=== PATIENT | male | born 1990 | race Two or more races ===

== ENCOUNTER 2020-12-02 09:06 | Emergency (ER) | payer OTHER ==
[~2020-12-02] VITALS: Ht 180.3 cm; Wt 80.7 kg
== END 2020-12-02 12:53 | disposition home or self-care (01) ==
LOC: ER 09:06
DX: S61.422A Laceration with foreign body of left hand, initial encounter (principal); W26.0XXA Contact with knife, initial encounter; Y93.89 Activity, other specified; Y92.090 Kitchen in other non-institutional residence as the place of occurrence of the external cause; Y99.8 Other external cause status

== ENCOUNTER 2023-08-26 06:40 | Emergency (ER) | payer OTHER ==
[~2023-08-26] VITALS: Ht 175.3 cm; Wt 90.7 kg
[2023-08-26 09:35] LABS: HEMATOCRIT 42.3 % (39.0-48.0); HEMOGLOBIN 14.4 g/dL (13-16.00); MEAN CORPUSCULAR HEMOGLOBIN 29.6 pg (27.00-32.0); MEAN CORPUSCULAR HGB CONC 34.1 g/dl (32.0-36.0); PLATELET COUNT 214 K/uL (150-450); RED BLOOD COUNT 4.86 M/uL (4.00-6.00); RED CELL DISTRIBUTION WIDTH 13.7 % (11.5-14.5)
[2023-08-26 09:47] LABS: PH,URINE 8.5 (5.0-8.0); URINE APPEARANCE Clear; URINE BILIRRUBIN Negative (NEGATIVE); URINE BLOOD Negative; URINE COLOR Yellow; URINE GLUCOSE Negative (NEGATIVE); URINE LEUKOCYTE Negative; URINE NITRATE Negative; URINE PROTEIN Trace (NEGATIVE); URINE UROBILINOGEN 0.2 E.U./dl
[2023-08-26 09:51] LABS: URINE WBC 4.9 uL (0.0-23.2)
[2023-08-26 09:57] LABS: URINE EPITHELIAL CELLS 1.2 uL (0.0-38.8)
[2023-08-26 10:12] LABS: CREATININE SERUM 0.97 mg/dL (0.70-1.30); GFR 89.13; POTASSIUM 4.09 mEq/L (3.5-5.1)
== END 2023-08-26 14:31 | disposition home or self-care (01) ==
LOC: ER 06:40
PROVIDERS: Emergency Medicine
DX: K52.89 Other specified noninfective gastroenteritis and colitis (principal)